=== PATIENT | male | born 1990 | race Caucasian/White ===

== ENCOUNTER 2019-06-14 11:54 | Emergency (ER) | payer OTHER ==
[2019-06-14 12:00] VITALS: BP 120/71
--- NOTE | 2019-06-14 12:11 | ED Physician Documentation ---
PD HPI HEAD INJURY - Stated complaint Stated Complaint: LACERATION - Chief complaint Chief Complaint: Laceration - History obtained from History obtained from: Patient - History of Present Illness Mechanism of head injury: Laceration (29-year-old gentleman, active duty in the [employer]. He was working with heavy boxes and one fell and a sharp edge cut his forehead. He has no headache. No loss of consciousness. No other injuries. He is up-to-date on tetanus.) Review of Systems Constitutional: reports: Reviewed and negative Nose: reports: Reviewed and negative Throat: reports: Reviewed and negative PD PAST MEDICAL HISTORY - Present Medications Home Medications: Ambulatory Orders Medication Instructions Recorded Confirmed No Known Home Medications 06/14/19 06/14/19 - Allergies Allergies/Adverse Reactions: Allergies Allergy/AdvReac Type Severity Reaction Status Date / Time No Known Drug Allergies Allergy Verified 06/14/19 12:00 PD ED PE NORMAL - Vitals Vital signs reviewed: Yes - General General: Alert and oriented X 3, No acute distress - HEENT HEENT: PERRL, EOMI, Other (3 cm vertical very shallow laceration R forehead) - Neck Neck: Supple, no meningeal sign, No bony TTP - Neuro Neuro: Alert and oriented X 3, bird tender 2-12 intact, No motor deficit, No sensory deficit, Normal speech - Psych Psych: Normal mood, Normal affect Results - Vitals Vitals: Vital Signs - 24 hr 06/14/19 11:57 Temperature 36.9 C Heart Rate 59 L Respiratory 16 Rate Blood Pressure 120/71 O2 Saturation 100 Oxygen O2 Source Room air Procedures - Laceration (location) forehead/face Length in cm: 3 Wound type: Linear, Superficial, Into subcut fat Wound Preparation: Irrigated copiously NS Skin layer closure: Dermabond Other: Tetanus UTD Complexity: Simple Departure - Departure Disposition: 01 Home, Self Care Clinical Impression: Forehead laceration Qualifiers: Encounter type: initial encounter Qualified Code(s): S01.81XA - Laceration without foreign body of other part of head, initial encounter Condition: Good Record reviewed to determine appropriate education?: Yes Instructions: ED Head Injury Closed, ED Laceration Facial Skin Glue
== END 2019-06-14 12:23 | disposition home or self-care (01) ==
LOC: ED 11:54
DX: S01.81XA Laceration without foreign body of other part of head, initial encounter (principal); W26.8XXA Contact with other sharp object(s), not elsewhere classified, initial encounter; Y93.89 Activity, other specified
CPT/HCPCS: 12013; 99283